=== PATIENT | male | born 1990 | race Caucasian/White ===

== ENCOUNTER 2018-07-15 13:23 | Emergency (ER) | payer MEDICAID, OTHER ==
[~2018-07-15] VITALS: Ht 188 cm; Wt 93.2 kg
[2018-07-15 16:42] VITALS: BP 121/67
== END 2018-07-15 16:44 | disposition home or self-care (01) ==
LOC: EMS 13:25
DX: R76.11 Nonspecific reaction to tuberculin skin test without active tuberculosis (principal); F17.210 Nicotine dependence, cigarettes, uncomplicated
CPT/HCPCS: 99406